=== PATIENT | male | born 1975 | race Caucasian/White ===

== ENCOUNTER 2017-04-06 09:48 | Emergency (ER) | payer MEDICAID ==
[~2017-04-06] VITALS: Ht 170.2 cm; Wt 70.0 kg
[2017-04-06 09:56] VITALS: Ht 170.2 cm; Wt 70.0 kg
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
[2017-04-06] MEDS ORDERED: IBUP-1542 PO (12:12)
[2017-04-06] MEDS ORDERED: HYDR-906 PO (12:16)
[2017-04-06] MEDS ORDERED: HYDROCODONE/APAP (5/325) TAB PO STA (16:00)
[2017-04-06] MEDS ORDERED: ONDANSETRON (ODT) 4 MG TAB ODT STA (16:00)
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
[2017-04-06 16:14] VITALS: BP 137/62; PULSE 70; RESP 17; TEMP 98
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
== END 2017-04-06 16:14 | disposition home or self-care (01) ==
LOC: FTE 09:48
DX: S82.432A Displaced oblique fracture of shaft of left fibula, initial encounter for closed fracture (principal); S30.1XXA Contusion of abdominal wall, initial encounter; V49.40XA Driver injured in collision with unspecified motor vehicles in traffic accident, initial encounter
CPT/HCPCS: 29515; 73610; 76705; Z7502; Z7610